=== PATIENT | male | born 1955 | race Hispanic/Latino ===

== ENCOUNTER 2019-07-14 07:27 | Day surgery (SDC) | payer BC ==
[~2019-07-14] VITALS: Ht 167.6 cm; Wt 116.6 kg
[~2019-07-14 07:27] MED LIST: EMPA10TA PO; GLUCAPHAGE PO; LISI10TA7 PO; OMEP20CA12 PO; SIMV10TA97 PO; SODIUM CHLORIDE 0.9% 1000ML 1,000 ML IV ONE
[2019-07-14 08:15] VITALS: BP 162/85
[2019-07-14] MEDS ORDERED: PROPOFOL 10 MG/ML 20ML VIAL IV ONE (08:57)
[2019-07-14 09:29] VITALS: BP 141/85
[2019-07-14 09:34] VITALS: BP 138/76
[2019-07-14 09:40] VITALS: BP 146/75
[2019-07-14 09:45] VITALS: BP 149/76
== END 2019-07-14 09:48 | disposition home or self-care (01) ==
LOC: ENDO 07:27 → DAH 07:27 → ENDO 09:48
PROVIDERS: ATTEND Internal Medicine Gastroenterology
DX: R19.5 Other fecal abnormalities (principal); D12.4 Benign neoplasm of descending colon; I10 Essential (primary) hypertension; E78.5 Hyperlipidemia, unspecified; E11.40 Type 2 diabetes mellitus with diabetic neuropathy, unspecified; Q43.8 Other specified congenital malformations of intestine
CPT/HCPCS: 45381; 45385; 82948 ×2; A4215; A4216; A4221; A4222; A4223; A4606; A4615; A4657; A4663; J2704; J7030